=== PATIENT | female | born 1960 | race African-American/Black ===

== ENCOUNTER 2016-07-09 14:19 | Emergency (ER) | payer MEDICAID, MEDICARE ==
[~2016-07-09] VITALS: Ht 165.1 cm; Wt 96.0 kg
[~2016-07-09 14:19] MED LIST: ASPI-1035; PHEN100C4; VALIUM; benazepril; fentanyl; soma
[2016-07-09] MEDS ORDERED: PHENYTOIN SODIUM 1,000 MG in SODIUM CHLORIDE 0.9% 100 ML IV ONE (15:30)
[2016-07-09 16:01] VITALS: BP 91/52
[2016-07-09] MEDS ORDERED: LORAZEPAM 2MG/ML CPJ IV ONE (16:15)
[2016-07-09 16:25] LABS: ANION GAP 13; CALCIUM 9.1 mg/dL (8.5-10.1); CARBON DIOXIDE 24 mEq/L (21-32); CHLORIDE 107 mEq/L (98-107); INDEX HEMOLYSI 1 (1-3); INDEX ICTERIC 1 (1-4); INDEX LIPEMIC 1 (1-3); PHENYTOIN 11.6 ug/mL (10-20); UREA NITROGEN BLOOD 14 mg/dL (7-21); eGFR > 60 mL/min (>60)
== END 2016-07-09 18:31 | disposition home or self-care (01) ==
LOC: ER 15:44
DX: G40.909 Epilepsy, unspecified, not intractable, without status epilepticus (principal); R51 Headache; Z88.0 Allergy status to penicillin; Z88.8 Allergy status to other drugs, medicaments and biological substances; Z88.6 Allergy status to analgesic agent; Z91.010 Allergy to peanuts; F17.210 Nicotine dependence, cigarettes, uncomplicated
CPT/HCPCS: 36415; 70450; 80048; 80185; 96374; 99285; J1165; J2060; Z7610; J7050

== ENCOUNTER 2018-06-02 10:45 | Emergency (ER) | payer MEDICAID ==
[~2018-06-02] VITALS: Ht 167.6 cm; Wt 95.0 kg
[~2018-06-02 10:45] MED LIST changes: -ASPI-1035; +ASPI-1159
[2018-06-02] MEDS ORDERED: SODIUM CHLORIDE 0.9% 1,000 ML IV ONE (11:11)
[2018-06-02] MEDS ORDERED: LORAZEPAM 2MG/ML CPJ IV ONE (11:15)
[2018-06-02] MEDS ORDERED: ONDANSETRON 4MG ODT PO ONE (12:30)
[2018-06-02] MEDS ORDERED: MORPHINE SULFATE 10 MG/ML CPJ IM ONE (12:30)
[2018-06-02 13:10] VITALS: BP 150/92
[2018-06-02] MEDS ORDERED: SODIUM BICARBONATE 4% (2.4MEQ) 5ML VIAL IV ONE (14:18)
[2018-06-02] MEDS ORDERED: LIDOCAINE HCL 1% 20ML VIAL (Pyxis) INJ ONE (14:18)
== END 2018-06-02 16:30 | disposition left against medical advice (07) ==
LOC: ER 10:45
DX: Z76.5 Malingerer [conscious simulation] (principal); G40.909 Epilepsy, unspecified, not intractable, without status epilepticus; Z88.0 Allergy status to penicillin; Z88.6 Allergy status to analgesic agent; Z91.010 Allergy to peanuts; Z86.73 Personal history of transient ischemic attack (TIA), and cerebral infarction without residual deficits; Z79.82 Long term (current) use of aspirin
CPT/HCPCS: 36569; 36573; 96372; 96374; 99285; C1725; J2060; J2270; J3490; J7030; Q0162